=== PATIENT | female | born 1975 ===

== ENCOUNTER 2021-10-20 19:04 | Emergency (ER) | payer MEDICAID ==
[~2021-10-20] VITALS: Ht 167.6 cm; Wt 90.7 kg
--- NOTE | 2021-10-20 19:15 | NUR ---
Unable to do EKG due to no beds available. Pt in waiting room.
[2021-10-21 03:06] LABS: HEMATOCRIT 40.1 % (31.2-41.9); MEAN CORPUSCULAR HEMOGLOBIN 30.6 uug (24.7-32.8); MEAN CORPUSCULAR VOLUME 87.4 fL (75.5-95.3); PLATELET COUNT (AUTO) 219 K/uL (179-408)
[2021-10-21 03:25] LABS: CREATININE 0.6 mg/dL (0.6-1.3); POTASSIUM 3.4 mmol/L (3.5-5.1)
[2021-10-21 03:36] LABS: BILIRUBIN,DIRECT 0.2 mg/dL (0.0-0.2); TOTAL PROTEIN, SERUM 8.7 g/dL (6.4-8.2)
[2021-10-21] MEDS ORDERED: D-ME473S63 PO (04:29)
[2021-10-21] MEDS: POTASSIUM CHLORIDE 20 MEQ TAB.PRT.SR PO ONE (04:30)
[2021-10-21] MEDS ORDERED: POTASSIUM CHLORIDE 20 MEQ TAB.PRT.SR ONE (04:33)
[2021-10-21 05:17] VITALS: BP 130/89
--- NOTE | 2021-10-21 05:17 | NUR ---
Patient discharged to home in stable condition. Written and verbal after care instructions given. Patient verbalizes understanding of instructions. Stressed follow up or return to ER for worsening s/s.
== END 2021-10-21 05:18 | disposition home or self-care (01) ==
LOC: ER 19:10
DX: R07.9 Chest pain, unspecified (principal); R05.9 Cough, unspecified; E03.9 Hypothyroidism, unspecified; Z20.822 Contact with and (suspected) exposure to COVID-19
CPT/HCPCS: 36415; 70030-TC; 71045; 85025; 87400; 93005

== ENCOUNTER 2024-10-11 00:24 | Emergency (ER) | payer MEDICAID ==
[~2024-10-11] VITALS: Ht 162.6 cm; Wt 93.0 kg
[~2024-10-11 00:24] MED LIST: D-ME473S63 PO
[2024-10-11 01:49] LABS: BASOPHILS # (AUTO) 0.1 K/UL (0.0-0.2); BASOPHILS % (AUTO) 0.7 % (0.0-2.0); EOSINOPHILS % (AUTO) 0.6 % (0.0-7.0); HEMATOCRIT 39.4 % (31.2-41.9); HEMOGLOBIN 13.7 g/dL (10.9-14.3); LYMPHOCYTES # (AUTO) 2.6 K/uL (0.8-4.8); LYMPHOCYTES % (AUTO) 31.6 % (20.5-51.5); MEAN CORPUSCULAR HEMOGLOBIN 31.4 uug (24.7-32.8); MEAN CORPUSCULAR HGB CONC 35 g/dL (32.3-35.6); MEAN CORPUSCULAR VOLUME 90.6 fL (75.5-95.3); MONOCYTES # (AUTO) 0.8 K/uL (0.1-1.30); MONOCYTES % (AUTO) 9.9 % (0.0-11.0); NEUTROPHILS # (AUTO) 4.8 K/uL (1.8-8.9); NEUTROPHILS % (AUTO) 57.2 % (38.5-71.5); PLATELET COUNT (AUTO) 142 K/uL (179-408); RED BLOOD CELL COUNT(AUTO) 4.35 MIL/uL (3.63-4.92); RED CELL DISTRIBUTION WIDTH 13.2 % (12.3-17.7); WHITE BLOOD COUNT (AUTO) 8.4 K/uL (3.8-11.8)
[2024-10-11 02:03] LABS: ALBUMIN 3.7 g/dL (3.4-5.0); BILIRUBIN,TOTAL 0.6 mg/dL (0.2-1.0); CALCIUM 8.7 mg/dL (8.5-10.1); CREATININE 0.7 mg/dL (0.6-1.3); POTASSIUM 4.2 mmol/L (3.5-5.1); TOTAL PROTEIN, SERUM 8.1 g/dL (6.4-8.2)
[2024-10-11 02:08] LABS: DIFFERENTIAL COMMENT 1
[2024-10-11 03:30] VITALS: BP 118/74; TEMP 98; O2SAT 100
== END 2024-10-11 03:30 | disposition home or self-care (01) ==
LOC: ER 01:26
DX: Z13.89 Encounter for screening for other disorder (principal); R05.9 Cough, unspecified; E03.9 Hypothyroidism, unspecified; Z90.49 Acquired absence of other specified parts of digestive tract; Z79.01 Long term (current) use of anticoagulants; Z20.822 Contact with and (suspected) exposure to COVID-19; Z88.7 Allergy status to serum and vaccine
CPT/HCPCS: 36415; 71045; 85025; A4606; A4663